=== PATIENT | female | born 1995 | race Two or more races ===

== ENCOUNTER 2021-06-02 00:14 | Emergency (ER) | payer MEDICAID ==
[~2021-06-02] VITALS: Ht 177.8 cm; Wt 63.0 kg
[2021-06-02] MEDS ORDERED: LACTATED RINGERS 1,000 ML IV SCH (01:15)
[2021-06-02 01:30] LABS: BASOPHILS % 0.6 % (0.0-2.0); EOSINOPHILS % 0.3 % (0.0-5.0); HEMOGLOBIN. 14.5 g/dL (12.0-16.0); LYMPHOCYTES % 27.6 % (20.0-50.0); MEAN CORPUSCULAR HEMOGLOBIN 29.2 pg (28.0-32.0); MEAN CORPUSCULAR VOLUME 84.3 fL (81.0-99.0); MEAN PLATELET VOLUME 8.7 fl (7.4-10.4); MONOCYTES % 9.3 % (2.0-8.0); NEUTROPHILS % 62.2 % (40.0-76.0); PLATELET 337 x1000/uL (130-400); RED BLOOD CELL COUNT 4.98 mill/uL (4.2-5.4); RED CELL DISTRIBUTION WIDTH 12.5 % (11.6-14.6)
[2021-06-02 01:39] LABS: CHLORIDE 98 mEq/L (98-107)
[2021-06-02 01:50] LABS: BETA HYDROXYBUTYRATE 3.4 mMol/L (0.0-0.3)
[2021-06-02 02:12] LABS: CLARITY URINE TURBID (CLEAR); COLOR URINE YELLOW (YELLOW); KETONES URINE 3+ (NEGATIVE); LEUKOCYTE ESTERASE URINE 2+ (NEGATIVE); NITRITE URINE NEGATIVE (NEGATIVE); OCCULT BLOOD URINE 2+ (NEGATIVE); PH URINE 5.5 (4.5-8.0); PROTEIN URINE 2+ (NEGATIVE); SPECIFIC GRAVITY URINE 1.027 (1.005-1.030)
[2021-06-02 02:15] LABS: BG BASE EXCESS -1.5 mmol/L (-2.0-2.0); BG CARBOXYHEMOGLOBIN 0.5 % (0.5-1.5); BG DEOXYHEMOGLOBIN 2.3 % (0.0-5.0); BG FRACTION INSPIRED OXYGEN 21; BG HCO3 ACT 21.5 mmol/L (22.0-26.0); BG METHEMOGLOBIN 0.3 % (0.0-1.5); BG OXYGEN SATURATION 97.7 % (92.0-98.5); BG OXYHEMOGLOBIN 96.9 % (94.0-97.0); BG PCO2 31.7 mmHg (35.0-45.0); BG PO2 104.1 mmHg (75.0-100.0); BG SAMPLE SITE LEFT RADIAL; BG TOTAL HEMOGLOBIN 14.7 g/dL (12.0-18.0); BG VENT MODE ROOM AIR
[2021-06-02] MEDS ORDERED: ONDANSETRON HCL 4MG/2ML INJ IV ONE (02:15)
[2021-06-02] MEDS ORDERED: KETOROLAC 15MG/ML VIAL IV ONE (02:15)
[2021-06-02] MEDS: LACTATED RINGERS 1,000 ML IV SCH ×3 (02:17→06:10)
[2021-06-02] MEDS ORDERED: MORPHINE SULFATE 4 MG/ML CPJ (NOT FOR IM USE) IV ONE (02:45)
[2021-06-02] MEDS ORDERED: CEFTRIAXONE SODIUM 1 G/VIAL IM ONE (03:15)
[2021-06-02 08:00] VITALS: BP 159/101
== END 2021-06-02 08:14 | disposition short-term general hospital (02) ==
LOC: ER 00:14
DX: R10.13 Epigastric pain (principal); E11.9 Type 2 diabetes mellitus without complications; Z88.8 Allergy status to other drugs, medicaments and biological substances
CPT/HCPCS: 36415; 36600; 71045; 80053; 81003; 81025; 82010; 82375; 82805; 82962; 83605; 83690; 85025; 87077; 87086; 93005; 96361; 96372; 96374; 96375; 99285; J0696; J1885; J2270; J2405

== ENCOUNTER 2022-04-04 21:52 | Emergency (ER) | payer MEDICAID ==
[~2022-04-04] VITALS: Ht 172.7 cm; Wt 69.3 kg
[2022-04-04 22:33] VITALS: BP 105/69
[2022-04-05] MEDS ORDERED: SODIUM CHLORIDE 0.9% 1000ML BAG (SEPSIS BOLUS) IV ONE (00:45)
[2022-04-05] MEDS ORDERED: METOCLOPRAMIDE HCL 10MG/2ML VIAL IV NR (01:15)
[2022-04-05 01:24] LABS: BASOPHILS % 0.7 % (0.0-2.0); EOSINOPHILS % 0.1 % (0.0-5.0); HEMATOCRIT. 35.4 % (36.0-48.0); HEMOGLOBIN. 12.5 g/dL (12.0-16.0); LYMPHOCYTES % 39.8 % (20.0-50.0); MEAN CORPUSCULAR HEMOGLOBIN 29.7 pg (28.0-32.0); MEAN CORPUSCULAR VOLUME 84.3 fL (81.0-99.0); MEAN PLATELET VOLUME 8.3 fl (7.4-10.4); MONOCYTES % 7.4 % (2.0-8.0); PLATELET 391 x1000/uL (130-400); RED CELL DISTRIBUTION WIDTH 14.1 % (11.6-14.6)
[2022-04-05 01:33] LABS: CHLORIDE 96 mEq/L (98-107)
[2022-04-05 01:35] LABS: CLARITY URINE CLOUDY (CLEAR); COLOR URINE ORANGE (YELLOW); KETONES URINE 1+ (NEGATIVE); LEUKOCYTE ESTERASE URINE NEGATIVE (NEGATIVE); NITRITE URINE NEGATIVE (NEGATIVE); OCCULT BLOOD URINE 3+ (NEGATIVE); PROTEIN URINE 3+ (NEGATIVE); SPECIFIC GRAVITY URINE 1.023 (1.005-1.030)
[2022-04-05 01:41] LABS: ETHANOL BLOOD < 10 mg/dL
[2022-04-05 01:47] LABS: *AMPHETAMINES SCREEN URINE NEGATIVE (NEGATIVE); *BARBITURATES SCREEN URINE NEGATIVE (NEGATIVE); *BENZODIAZEPINES SCREEN URINE NEGATIVE (NEGATIVE); *COCAINE SCREEN URINE NEGATIVE (NEGATIVE); CANNABINOID URINE SCREEN NEGATIVE (NEGATIVE); METHADONE URINE SCREEN NEGATIVE (NEGATIVE); PHENCYCLIDINE URINE SCREEN NEGATIVE (NEGATIVE)
[2022-04-05 01:48] LABS: PROTHROMBIN TIME 10.9 sec (9.6-11.0)
[2022-04-05 01:49] LABS: HCG SCREEN NEGATIVE; OPIATES URINE SCREEN PRESUMTIVE POSITIVE (NEGATIVE)
[2022-04-05] MEDS ORDERED: KETOROLAC 15MG/ML VIAL IV NR (02:15)
[2022-04-05] MEDS ORDERED: PANTOPRAZOLE SODIUM 40 MG/VIAL IV NR (02:30)
[2022-04-05] MEDS ORDERED: MAGNESIUM/ALUMINUM HYDROXIDE/SIMETHICONE 30ML UDC PO NR (02:30)
[2022-04-05] MEDS ORDERED: VISCOUS LIDOCAINE 2% 15 ML UDC MM NR (02:30)
[2022-04-05] MEDS ORDERED: INSULIN REGULAR (HUMULIN R) 300UNITS/3ML VIAL SUBCUT NR (02:45)
[2022-04-05] MEDS ORDERED: POTASSIUM CHLORIDE 20MEQ TABLET SR PO NR (02:45)
[2022-04-05] MEDS ORDERED: MAG355OR21 MT (03:22)
[2022-04-05] MEDS ORDERED: METO-293 MT (03:22)
[2022-04-05] MEDS ORDERED: POTA-204 MT (03:22)
== END 2022-04-05 04:21 | disposition home or self-care (01) ==
LOC: ER 21:52 → CANBEDREQ 04-05 13:31
DX: E11.43 Type 2 diabetes mellitus with diabetic autonomic (poly)neuropathy (principal); E11.65 Type 2 diabetes mellitus with hyperglycemia; K31.84 Gastroparesis; E86.0 Dehydration; Z88.8 Allergy status to other drugs, medicaments and biological substances
CPT/HCPCS: 36415; 71045; 76705; 80053; 80305; 80320; 81003; 82962; 83605; 83690; 84145; 84703; 85025; 85610; 87086; 96361; 96372; 96374; 96375; 99285; C9113; J1815; J2765; J7030; G0480

== ENCOUNTER 2022-04-17 21:08 | Emergency (ER) | payer MEDICAID ==
[~2022-04-17] VITALS: Ht 165.1 cm; Wt 64.0 kg
[~2022-04-17 21:08] MED LIST: MAG355OR21 MT; METO-293 MT; POTA-204 MT
[2022-04-17 21:17] VITALS: BP 174/115
[2022-04-17] MEDS ORDERED: MORPHINE SULFATE 4 MG/ML CPJ (NOT FOR IM USE) IV STA (21:20)
[2022-04-17] MEDS ORDERED: FAMOTIDINE 20MG/2ML VIAL IV STA (21:20)
[2022-04-17] MEDS ORDERED: ONDANSETRON HCL 4MG/2ML INJ IV STA (21:20)
[2022-04-17] MEDS ORDERED: SODIUM CHLORIDE 0.9% 1,000 ML IV ONE (21:30)
[2022-04-17] MEDS ORDERED: MIDAZOLAM HCL 2 MG/2 ML VIAL IV ONE (21:30)
[2022-04-17 23:29] LABS: BASOPHILS % 0.9 % (0.0-2.0); EOSINOPHILS % 0.2 % (0.0-5.0); HEMATOCRIT. 32.8 % (36.0-48.0); HEMOGLOBIN. 11.5 g/dL (12.0-16.0); LYMPHOCYTES % 18.9 % (20.0-50.0); MEAN CORPUSCULAR HEMOGLOBIN 29.5 pg (28.0-32.0); MEAN CORPUSCULAR VOLUME 84.3 fL (81.0-99.0); MEAN PLATELET VOLUME 7.6 fl (7.4-10.4); MONOCYTES % 5.3 % (2.0-8.0); NEUTROPHILS % 74.7 % (40.0-76.0); PLATELET 397 x1000/uL (130-400); RED BLOOD CELL COUNT 3.89 mill/uL (4.2-5.4)
[2022-04-17 23:33] LABS: CHLORIDE 91 mEq/L (98-107)
[2022-04-17 23:36] LABS: PROTHROMBIN TIME 10.7 sec (9.6-11.0)
[2022-04-17 23:42] LABS: ETHANOL BLOOD < 10 mg/dL
[2022-04-17] MEDS ORDERED: MIDAZOLAM HCL 2 MG/2 ML VIAL IV NR (23:45)
[2022-04-17] MEDS ORDERED: MORPHINE SULFATE 4 MG/ML CPJ (NOT FOR IM USE) IV NR (23:45)
[2022-04-17] MEDS ORDERED: ONDANSETRON HCL 4MG/2ML INJ IV NR (23:45)
[2022-04-17] MEDS ORDERED: FAMOTIDINE 20MG/2ML VIAL IV NR (23:45)
[2022-04-17 23:55] LABS: HCG SCREEN NEGATIVE
[2022-04-18 00:38] LABS: CLARITY URINE CLOUDY (CLEAR); COLOR URINE YELLOW (YELLOW); KETONES URINE TRACE (NEGATIVE); LEUKOCYTE ESTERASE URINE NEGATIVE (NEGATIVE); NITRITE URINE NEGATIVE (NEGATIVE); OCCULT BLOOD URINE 1+ (NEGATIVE); PROTEIN URINE 4+ (NEGATIVE); SPECIFIC GRAVITY URINE 1.017 (1.005-1.030)
[2022-04-18 00:55] LABS: *AMPHETAMINES SCREEN URINE NEGATIVE (NEGATIVE); *BARBITURATES SCREEN URINE NEGATIVE (NEGATIVE); *BENZODIAZEPINES SCREEN URINE NEGATIVE (NEGATIVE); *COCAINE SCREEN URINE NEGATIVE (NEGATIVE); CANNABINOID URINE SCREEN NEGATIVE (NEGATIVE); METHADONE URINE SCREEN NEGATIVE (NEGATIVE); PHENCYCLIDINE URINE SCREEN NEGATIVE (NEGATIVE)
[2022-04-18 00:56] LABS: OPIATES URINE SCREEN PRESUMTIVE POSITIVE (NEGATIVE)
[2022-04-18] MEDS ORDERED: ONDA4TAB11 PO (00:56)
[2022-04-18] MEDS ORDERED: OMEP20CA14 MT (00:56)
[2022-04-18] MEDS ORDERED: DICY10CA88 MT (00:56)
== END 2022-04-18 02:37 | disposition home or self-care (01) ==
LOC: ER 21:08
DX: R10.13 Epigastric pain (principal); E11.9 Type 2 diabetes mellitus without complications; I10 Essential (primary) hypertension; Z88.6 Allergy status to analgesic agent; Z88.5 Allergy status to narcotic agent
CPT/HCPCS: 36415; 80053; 80305; 80320; 81003; 83690; 84703; 85025; 85610; 96361; 96374; 96375; 99284; J2250; J2270; J2405; J3490; J7030; G0480

== ENCOUNTER 2022-04-21 19:09 | Emergency (ER) | payer MEDICAID ==
[~2022-04-21] VITALS: Ht 172.7 cm; Wt 77.0 kg
[~2022-04-21 19:09] MED LIST changes: +DICY10CA88 MT; +OMEP20CA14 MT; +ONDA4TAB11 PO
[2022-04-21] MEDS ORDERED: DEXTROSE 5% WATER 1,000 ML IV ONE (20:30)
[2022-04-21] MEDS ORDERED: MORPHINE SULFATE 2 MG/ML CPJ (NOT FOR IM USE) IV ONE (20:30)
[2022-04-21 20:59] LABS: BASOPHILS % 0.3 % (0.0-2.0); EOSINOPHILS % 0.1 % (0.0-5.0); HEMATOCRIT. 32.8 % (36.0-48.0); HEMOGLOBIN. 11.5 g/dL (12.0-16.0); LYMPHOCYTES % 16.2 % (20.0-50.0); MEAN CORPUSCULAR HEMOGLOBIN 29.7 pg (28.0-32.0); MEAN CORPUSCULAR VOLUME 84.6 fL (81.0-99.0); MEAN PLATELET VOLUME 7.4 fl (7.4-10.4); MONOCYTES % 3.7 % (2.0-8.0); NEUTROPHILS % 79.7 % (40.0-76.0); PLATELET 378 x1000/uL (130-400); RED BLOOD CELL COUNT 3.88 mill/uL (4.2-5.4); RED CELL DISTRIBUTION WIDTH 14.2 % (11.6-14.6)
[2022-04-21 21:10] LABS: CHLORIDE 94 mEq/L (98-107)
[2022-04-21 21:23] LABS: ETHANOL BLOOD < 10 mg/dL
[2022-04-21] MEDS ORDERED: MORPHINE SULFATE 2 MG/ML CPJ (NOT FOR IM USE) IV SCH (22:15)
[2022-04-22 02:55] VITALS: BP 134/88
== END 2022-04-22 04:03 | disposition short-term general hospital (02) ==
LOC: ER 19:09
DX: E11.649 Type 2 diabetes mellitus with hypoglycemia without coma (principal); R56.9 Unspecified convulsions; R41.82 Altered mental status, unspecified; S00.512A Abrasion of oral cavity, initial encounter; I10 Essential (primary) hypertension; Z20.822 Contact with and (suspected) exposure to COVID-19; Z88.6 Allergy status to analgesic agent; Z88.5 Allergy status to narcotic agent; X58.XXXA Exposure to other specified factors, initial encounter; Y93.89 Activity, other specified; Y92.018 Other place in single-family (private) house as the place of occurrence of the external cause
CPT/HCPCS: 36415; 70450; 71045; 80053; 80320; 82962; 84484; 85025; 87426; 93005; 96361; 96374; 99285; C9803; J2270; J7070; G0480

== ENCOUNTER 2022-10-08 18:32 | Emergency (ER) | payer MEDICAID ==
[~2022-10-08] VITALS: Ht 170.2 cm; Wt 73.0 kg
[2022-10-08 18:34] VITALS: BP 195/100
== END 2022-10-08 21:21 | disposition left against medical advice (07) ==
LOC: ER 18:45
DX: R06.02 Shortness of breath (principal); Z53.21 Procedure and treatment not carried out due to patient leaving prior to being seen by health care provider
CPT/HCPCS: 99281

== ENCOUNTER 2023-06-09 17:05 | Emergency (ER) | payer MEDICAID ==
[~2023-06-09] VITALS: Ht 175.3 cm; Wt 82.0 kg
[~2023-06-09 17:05] MED LIST changes: +DICY-18 MT; -DICY10CA88 MT
[2023-06-09] MEDS ORDERED: ONDANSETRON HCL 4MG/2ML INJ IV STA (17:13)
[2023-06-09 17:15] VITALS: O2SAT 100
[2023-06-09] MEDS ORDERED: FAMOTIDINE 20MG/2ML VIAL IV ONE (17:15)
[2023-06-09] MEDS ORDERED: SODIUM CHLORIDE 0.9% 1,000 ML IV ONE (17:15)
[2023-06-09 17:52] LABS: BASOPHILS % 0.5 % (0.0-2.0); EOSINOPHILS % 0.2 % (0.0-5.0); HEMATOCRIT. 28.7 % (36.0-48.0); MEAN CORPUSCULAR HEMOGLOBIN 29.7 pg (28.0-32.0); MEAN CORPUSCULAR HGB CONC 34.9 g/dL (31.0-37.0); MEAN CORPUSCULAR VOLUME 85.1 fL (81.0-99.0); MEAN PLATELET VOLUME 8.6 fl (7.4-10.4); MONOCYTES % 2.8 % (2.0-8.0); NEUTROPHILS % 82.5 % (40.0-76.0); PLATELET 355 x1000/uL (130-400); RED BLOOD CELL COUNT 3.37 mill/uL (4.2-5.4); RED CELL DISTRIBUTION WIDTH 11.9 % (11.6-14.6); WHITE BLOOD COUNT 9.3 x1000/uL (4.5-11.0)
[2023-06-09 18:12] LABS: HCG SCREEN NEGATIVE
[2023-06-09 18:15] LABS: ALANINE AMINOTRANSFERASE 10 IU/L (10-49); ALBUMIN 3.2 g/dL (3.2-4.8); ASPARTATE AMINOTRANSFERASE 30 IU/L (<34); BILIRUBIN TOTAL 1.1 mg/dL (0.1-1.0); CALCIUM 8.7 mg/dL (8.7-10.4); CARBON DIOXIDE 26 mEq/L (21-32); CHLORIDE 100 mEq/L (98-107); CREATININE 1.1 mg/dL (0.6-1.0); POTASSIUM 3.7 mEq/L (3.5-5.1); PROTEIN TOTAL 6.6 g/dL (6.0-8.3); SODIUM 138 mEq/L (136-145); UREA NITROGEN BLOOD 12 mg/dL (9-23)
[2023-06-09 18:31] LABS: GLUCOSE 430 mg/dL (70-105)
[2023-06-09] MEDS ORDERED: KETOROLAC 15MG/ML VIAL IV ONE (19:00)
[2023-06-09] MEDS ORDERED: INSULIN REGULAR (HUMULIN R) 300UNITS/3ML VIAL IV ONE (19:00)
[2023-06-09 19:06] LABS: BETA HYDROXYBUTYRATE 3.9 mMol/L (0.0-0.3)
[2023-06-09] MEDS ORDERED: LACTATED RINGERS 1,000 ML IV SCH (19:30)
[2023-06-09] MEDS ORDERED: MORPHINE SULFATE 4 MG/ML CPJ (NOT FOR IM USE) IV ONE (19:30)
[2023-06-09] MEDS ORDERED: LABETALOL 5MG/ML SYR 20 MG/4 ML SYRINGE IV ONE (20:30)
[2023-06-09 21:03] VITALS: BP 184/105; PULSE 75; RESP 16; TEMP 98.3
== END 2023-06-09 21:09 | disposition short-term general hospital (02) ==
LOC: ER 17:05 → EDBEDREQ 18:39 → ER 21:09 → CANBEDREQ 06-10 14:15
DX: R10.13 Epigastric pain (principal); N17.9 Acute kidney failure, unspecified; E11.65 Type 2 diabetes mellitus with hyperglycemia; I10 Essential (primary) hypertension; F41.9 Anxiety disorder, unspecified
CPT/HCPCS: 80053; 82010; 82962; 84703; 83690; 85025; 36415; 96361; 96374; 96375; 99285; J3490 ×2; J1815; J1885; J2405; J2270; J7030; Z7610 ×2

== ENCOUNTER 2023-11-02 13:41 | Emergency (ER) | payer MEDICAID ==
[~2023-11-02] VITALS: Ht 175.3 cm; Wt 72.0 kg
[2023-11-02 13:42] VITALS: BP 185/137; PULSE 118; RESP 18; TEMP 96.8; O2SAT 97
[2023-11-02 14:19] LABS: BASOPHILS % 0.5 % (0.0-2.0); EOSINOPHILS % 0.1 % (0.0-5.0); HEMATOCRIT. 31.4 % (36.0-48.0); LYMPHOCYTES % 10.2 % (20.0-50.0); MEAN CORPUSCULAR HEMOGLOBIN 29.5 pg (28.0-32.0); MEAN CORPUSCULAR HGB CONC 35.1 g/dL (31.0-37.0); MEAN CORPUSCULAR VOLUME 83.9 fL (81.0-99.0); MEAN PLATELET VOLUME 8.3 fl (7.4-10.4); MONOCYTES % 2.7 % (2.0-8.0); NEUTROPHILS % 86.5 % (40.0-76.0); PLATELET 308 x1000/uL (130-400); RED BLOOD CELL COUNT 3.75 mill/uL (4.2-5.4); WHITE BLOOD COUNT 8.5 x1000/uL (4.5-11.0)
[2023-11-02 14:24] LABS: CHLORIDE 101 mEq/L (98-107); POTASSIUM 3.2 mEq/L (3.5-5.1); SODIUM 139 mEq/L (136-145)
[2023-11-02 14:25] LABS: CALCIUM 8.3 mg/dL (8.7-10.4); CARBON DIOXIDE 25 mEq/L (21-32)
[2023-11-02 14:30] LABS: UREA NITROGEN BLOOD 22 mg/dL (9-23)
[2023-11-02 14:32] LABS: ALANINE AMINOTRANSFERASE 10 IU/L (10-49); ALBUMIN 3.3 g/dL (3.2-4.8); ASPARTATE AMINOTRANSFERASE 20 IU/L (<34); BILIRUBIN TOTAL 0.9 mg/dL (0.1-1.0); PROTEIN TOTAL 6.9 g/dL (6.0-8.3)
[2023-11-02 14:43] LABS: HCG SCREEN NEGATIVE
[2023-11-02 14:50] LABS: CREATININE 2.2 mg/dL (0.6-1.0); ETHANOL BLOOD < 10 mg/dL (<10)
[2023-11-02 14:51] LABS: GLUCOSE 459 mg/dL (70-105)
[2023-11-02 14:59] LABS: BETA HYDROXYBUTYRATE 4.4 mMol/L (0.0-0.3)
[2023-11-02] MEDS: KETOROLAC 30MG/ML VIAL IV STA (15:04)
[2023-11-02] MEDS: ONDANSETRON HCL 4MG/2ML INJ IV STA (15:04)
[2023-11-02] MEDS: HALOPERIDOL LACTATE 5MG/ML VIAL IM ONE (15:04)
[2023-11-02] MEDS: MAGNESIUM/ALUMINUM HYDROXIDE/SIMETHICONE 30ML UDC PO STA (15:05)
[2023-11-02] MEDS: SODIUM CHLORIDE 0.9% 1,000 ML IV ONE (15:05)
[2023-11-02] MEDS: DICYCLOMINE HCL 10MG CAPSULE PO SCH (15:05)
[2023-11-02] MEDS: DICYCLOMINE 10 MG/5 ML ORAL SYR PO STA (15:08)
[2023-11-02] MEDS ORDERED: DEXTROSE 50% WATER 50ML SYRINGE IV PRN (15:30)
[2023-11-02] MEDS ORDERED: METOCLOPRAMIDE HCL 10MG/2ML VIAL IV ONE (15:30)
[2023-11-02 15:40] LABS: CLARITY URINE CLEAR (CLEAR); COLOR URINE YELLOW (YELLOW); GLUCOSE URINE 3+ (NEGATIVE); KETONES URINE 1+ (NEGATIVE); LEUKOCYTE ESTERASE URINE NEGATIVE (NEGATIVE); NITRITE URINE NEGATIVE (NEGATIVE); OCCULT BLOOD URINE 2+ (NEGATIVE); PROTEIN URINE 4+ (NEGATIVE); SPECIFIC GRAVITY URINE 1.021 (1.005-1.030); UROBILINOGEN URINE 0.2 E.U./dL (0.2-1.0)
[2023-11-02 15:58] LABS: BACTERIA URINE NONE SEEN; RBC URINE 0-2 /hpf (0-2); SQUAMOUS EPITHELIAL CELL URINE 1+ /lpf (RARE/1+); WBC URINE 0-2 /hpf (0-2)
[2023-11-02 15:59] LABS: *AMPHETAMINES SCREEN URINE NEGATIVE (NEGATIVE); *BARBITURATES SCREEN URINE NEGATIVE (NEGATIVE); *BENZODIAZEPINES SCREEN URINE NEGATIVE (NEGATIVE); *COCAINE SCREEN URINE NEGATIVE (NEGATIVE); CANNABINOID URINE SCREEN NEGATIVE (NEGATIVE); METHADONE URINE SCREEN NEGATIVE (NEGATIVE); OPIATES URINE SCREEN PRESUMPTIVE POSITIVE (NEGATIVE); PHENCYCLIDINE URINE SCREEN NEGATIVE (NEGATIVE)
[2023-11-02 16:00] LABS: ECSTASY MDMA SCREEN URINE NEGATIVE (NEGATIVE)
[2023-11-02] MEDS ORDERED: INSULIN LISPRO 100 UNITS/ML SUBCUT SCH (18:20)
== END 2023-11-02 15:20 | disposition left against medical advice (07) ==
LOC: ER 13:41 → CANBEDREQ 16:38
DX: E11.43 Type 2 diabetes mellitus with diabetic autonomic (poly)neuropathy (principal); K31.84 Gastroparesis; E87.6 Hypokalemia; E11.10 Type 2 diabetes mellitus with ketoacidosis without coma; F41.9 Anxiety disorder, unspecified; I10 Essential (primary) hypertension
CPT/HCPCS: 80053; 80305; 81003; 81025; 82010; 80320; 84703; 83690; 85025; 36415; 96361; 96372; 96374; 96375; 99291; J1630; J1885; J2405; J7030; Z7610 ×2; G0480

== ENCOUNTER 2024-06-29 10:43 | Emergency (ER) | payer MEDICAID ==
[~2024-06-29] VITALS: Ht 170.2 cm; Wt 73.0 kg
[~2024-06-29 10:43] MED LIST changes: +ONDA-239 PO; -ONDA4TAB11 PO
[2024-06-29 10:47] VITALS: TEMP 98.7; O2SAT 100
[2024-06-29] MEDS: MAGNESIUM/ALUMINUM HYDROXIDE/SIMETHICONE 30ML UDC PO STA (12:20)
[2024-06-29] MEDS: ONDANSETRON 4MG ODT PO STA (12:20)
[2024-06-29 12:39] LABS: CALCIUM 9.1 mg/dL (8.7-10.4)
[2024-06-29 12:43] LABS: CREATININE 1.8 mg/dL (0.6-1.0)
[2024-06-29 12:44] LABS: BASOPHILS % 0.6 % (0.0-2.0); EOSINOPHILS % 0.8 % (0.0-5.0); HEMATOCRIT. 35.3 % (36.0-48.0); HEMOGLOBIN. 11.9 g/dL (12.0-16.0); LYMPHOCYTES % 15.6 % (20.0-50.0); MEAN CORPUSCULAR HEMOGLOBIN 30.5 pg (28.0-32.0); MEAN CORPUSCULAR HGB CONC 33.7 g/dL (31.0-37.0); MEAN CORPUSCULAR VOLUME 90.4 fL (81.0-99.0); MEAN PLATELET VOLUME 7.1 fl (7.4-10.4); MONOCYTES % 5.4 % (2.0-8.0); NEUTROPHILS % 77.6 % (40.0-76.0); PLATELET 408 x1000/uL (130-400); RED BLOOD CELL COUNT 3.91 mill/uL (4.2-5.4); RED CELL DISTRIBUTION WIDTH 16.5 % (11.6-14.6); WHITE BLOOD COUNT 6.8 x1000/uL (4.5-11.0)
[2024-06-29 12:45] LABS: HCG SCREEN NEGATIVE
[2024-06-29 12:54] VITALS: BP 147/93; PULSE 115; RESP 18
[2024-06-29] MEDS: HYDROCODONE/ACETAMINOPHEN 5/325MG TABLET PO ONE (12:54)
[2024-06-29] MEDS ORDERED: METO-293 MT (12:55)
== END 2024-06-29 13:34 | disposition home or self-care (01) ==
LOC: ER 10:43
DX: K31.84 Gastroparesis (principal); F41.9 Anxiety disorder, unspecified; I10 Essential (primary) hypertension; E11.9 Type 2 diabetes mellitus without complications; Z88.5 Allergy status to narcotic agent; Z79.899 Other long term (current) drug therapy
CPT/HCPCS: 99284; 80048; 84703; 83690; 85025; 36415; Q0162

== ENCOUNTER 2024-06-29 13:19 | Emergency (ER) | payer MEDICAID ==
[~2024-06-29] VITALS: Ht 167.6 cm; Wt 85.0 kg
[2024-06-29 13:32] VITALS: O2SAT 98
[2024-06-29 13:43] VITALS: BP 140/86; PULSE 111; RESP 18; TEMP 37.05852; O2SAT 98
== END 2024-06-29 15:41 | disposition left against medical advice (07) ==
LOC: ER 13:36
DX: R10.9 Unspecified abdominal pain (principal); Z53.21 Procedure and treatment not carried out due to patient leaving prior to being seen by health care provider

== ENCOUNTER 2024-10-22 22:51 | Inpatient (IN) | payer MEDICAID ==
[~2024-10-22] VITALS: Ht 200.7 cm; Wt 58.1 kg
[2024-10-22 22:59] VITALS: RESP 34
[2024-10-22 23:26] LABS: BG BASE EXCESS -9.7 mmol/L (-2.0-3.0); BG CARBOXYHEMOGLOBIN 0.7 % (0.5-1.5); BG DEOXYHEMOGLOBIN 1.1 % (0.0-5.0); BG FRACTION INSPIRED OXYGEN 80; BG HCO3 ACT 15.2 mmol/L (21.0-28.0); BG OXYGEN SATURATION 98.9 % (94.0-98.0); BG OXYHEMOGLOBIN 98.2 % (94.0-98.0); BG PCO2 29.5 mmHg (32.0-45.0); BG PO2 152.5 mmHg (83.0-108.0); BG TOTAL HEMOGLOBIN 7.4 g/dL (12.0-16.0); BG VENT MODE MASK - BIPAP
[2024-10-22 23:48] LABS: MEAN CORPUSCULAR HEMOGLOBIN 29.6 pg (28.0-32.0); MEAN CORPUSCULAR HGB CONC 32.6 g/dL (31.0-37.0); MEAN CORPUSCULAR VOLUME 90.6 fL (81.0-99.0); MEAN PLATELET VOLUME 8.8 fl (7.4-10.4); PLATELET 180 x1000/uL (130-400); RED BLOOD CELL COUNT 2.27 mill/uL (4.2-5.4); WHITE BLOOD COUNT 11.7 x1000/uL (4.5-11.0)
[2024-10-22 23:53] LABS: CHLORIDE 108 mEq/L (98-107); POTASSIUM 5.1 mEq/L (3.5-5.1); SODIUM 137 mEq/L (136-145)
[2024-10-22 23:54] LABS: CALCIUM 8.1 mg/dL (8.7-10.4); CARBON DIOXIDE 17 mEq/L (21-32)
[2024-10-23] VITALS (20 sets, daily range): BP systolic 106–163; BP diastolic 59–100; PULSE 79–97; RESP 19–31; TEMP 36.78072–38.11416; O2SAT 89–100
[2024-10-23 00:11] LABS: GLUCOSE 163 mg/dL (70-105); UREA NITROGEN BLOOD 75 mg/dL (9-23)
[2024-10-23 00:13] LABS: TROPONIN I HIGH SENSITIVITY 26 ng/L (3.0-34)
[2024-10-23 00:24] LABS: DIFFERENTIAL COMMENT 1; HEMATOCRIT. 20.5 % (36.0-48.0); HEMOGLOBIN. 6.7 g/dL (12.0-16.0)
[2024-10-23 00:33] LABS: CREATININE 3.5 mg/dL (0.6-1.0)
[2024-10-23] MEDS: ONDANSETRON HCL 4MG/2ML INJ IV STA (01:00)
[2024-10-23] MEDS: FUROSEMIDE 40MG/4ML VIAL IV NR (01:01)
[2024-10-23] MEDS: FUROSEMIDE 40MG/4ML VIAL IV ONE (01:01)
[2024-10-23] MEDS: ONDANSETRON HCL 4MG/2ML INJ IV NR (01:09)
[2024-10-23] MEDS: KETAMINE HCL 50 MG/ML 10ML IM NR (01:45)
[2024-10-23] MEDS: MORPHINE SULFATE 4 MG/ML INJ (FOR IV/IM USE) IV ONE (01:45)
[2024-10-23 02:20] LABS: TROPONIN I HIGH SENSITIVITY 25 ng/L (3.0-34)
[2024-10-23] MEDS ORDERED: IPRATROPIUM/ALBUTEROL 0.5-3(2.5)MG/3ML NEB NEB SCH (02:30)
[2024-10-23] MEDS ORDERED: DEXTROSE 50% WATER 50ML SYRINGE IV PRN (02:45)
[2024-10-23 02:59] LABS: IRON 12 ug/dL (50-170)
[2024-10-23 03:01] LABS: PHOSPHORUS 6.1 mg/dL (2.5-4.9); TOTAL IRON BINDING CAPACITY 215 ug/dl (250-425)
[2024-10-23 03:04] LABS: FERRITIN 1556 ng/mL (10-291); FOLIC ACID (FOLATE) SERUM 7.49 ng/mL (>5.38)
[2024-10-23 03:05] LABS: VITAMIN B12 SERUM 480 pg/mL (211-911)
[2024-10-23] MEDS ORDERED: MAGNESIUM/ALUMINUM HYDROXIDE/SIMETHICONE 30ML UDC PO PRN (03:15)
[2024-10-23] MEDS ORDERED: ONDANSETRON HCL 4MG/2ML INJ IV PRN (03:15)
[2024-10-23] MEDS ORDERED: GUAIFENESIN 200MG/10ML SUGAR FREE UDC PO PRN (03:15)
[2024-10-23] MEDS ORDERED: IPRATROPIUM/ALBUTEROL 0.5-3(2.5)MG/3ML NEB HHN PRN (03:15)
[2024-10-23] MEDS ORDERED: DOCUSATE SODIUM 100MG CAPSULE PO PRN (03:15)
[2024-10-23] MEDS ORDERED: HYDRALAZINE 20MG/ML VIAL IV PRN (03:30)
[2024-10-23 05:10] LABS: BG BASE EXCESS -10.5 mmol/L (-2.0-3.0); BG CARBOXYHEMOGLOBIN 0.8 % (0.5-1.5); BG DEOXYHEMOGLOBIN 2.3 % (0.0-5.0); BG FRACTION INSPIRED OXYGEN 80; BG HCO3 ACT 14.7 mmol/L (21.0-28.0); BG METHEMOGLOBIN 0.4 % (0.5-1.5); BG OXYGEN SATURATION 97.7 % (94.0-98.0); BG OXYHEMOGLOBIN 96.5 % (94.0-98.0); BG PCO2 29.6 mmHg (32.0-45.0); BG PH 7.314 (7.350-7.450); BG TOTAL HEMOGLOBIN 7.1 g/dL (12.0-16.0); BG VENT MODE MASK - BIPAP
[2024-10-23] MEDS ORDERED: GABA-529 PO (05:23)
[2024-10-23] MEDS ORDERED: CARV12.545 PO (05:23)
[2024-10-23] MEDS ORDERED: FURO20TA4 PO (05:23)
[2024-10-23] MEDS ORDERED: APIX5TAB PO (05:23)
[2024-10-23] MEDS ORDERED: SODI650T PO (05:23)
[2024-10-23] MEDS ORDERED: ATOR20TA65 PO (05:23)
[2024-10-23] MEDS ORDERED: AMLO10TA80 PO (05:23)
[2024-10-23] MEDS ORDERED: SEVELAMER (05:23)
[2024-10-23] MEDS ORDERED: METO2.5T2 PO (05:23)
[2024-10-23 05:54] LABS: PLATELET ESTIMATE NORMAL
[2024-10-23] MEDS: SODIUM CHLORIDE 0.9% 3ML FLUSH IVF SCH (06:00)
[2024-10-23] MEDS ORDERED: PIPERACILLIN/TAZO 3.375G/50ML 50 ML IV SCH (06:00)
[2024-10-23] MEDS ORDERED: HYDRALAZINE 20MG/ML VIAL IV SCH (06:00)
[2024-10-23] MEDS: BLOOD SUGAR DIAGNOSTIC STRIP TEST SCH (07:30)
[2024-10-23] MEDS: PIPERACILLIN/TAZO 3.375G/50ML 50 ML IV SCH (07:57)
[2024-10-23] MEDS: FUROSEMIDE 40MG/4ML VIAL IV SCH ×2 (07:57→17:15)
[2024-10-23] MEDS: MAGNESIUM 2 G PREMIX 50 ML IV NR (07:57)
[2024-10-23] MEDS: INSULIN LISPRO 100 UNITS/ML SUBCUT SCH (08:00)
[2024-10-23] MEDS: LORAZEPAM 0.5MG TABLET PO PRN (08:37)
[2024-10-23] MEDS: TRAMADOL 50MG TABLET PO PRN (08:39)
[2024-10-23] MEDS: LIDOCAINE 5% PATCH TOP SCH (09:00)
[2024-10-23] MEDS ORDERED: ENOXAPARIN 30MG/0.3ML SYR SUBCUT SCH (09:00)
[2024-10-23 09:14] LABS: INR 1.4; PARTIAL THROMBOPLASTIN TIME 36.8 sec (23.4-31.0); PROTHROMBIN TIME 14.6 sec (9.6-11.0)
[2024-10-23] MEDS: PANTOPRAZOLE SODIUM 40 MG/VIAL IV SCH (10:28)
[2024-10-23] MEDS: VANCOMYCIN 1.5GM/250ML IV NR (10:28)
[2024-10-23] MEDS: FERROUS SULFATE 325MG TABLET PO SCH (10:28)
[2024-10-23] MEDS: MULTIVITAMINS,THER W-MINERALS TABLET PO SCH (10:29)
[2024-10-23] MEDS ORDERED: NALOXONE HCL 0.4MG/ML VIAL IV PRN (12:30)
[2024-10-23] MEDS ORDERED: SEVELAMER CARBONATE 800 MG TABLET PO SCH (13:00)
[2024-10-23] MEDS: LIDOCAINE HCL 1% 10 MG/ML 10ML VIAL ONE (14:52)
[2024-10-23 17:11] LABS: TROPONIN I HIGH SENSITIVITY 23 ng/L (3.0-34)
[2024-10-23 17:12] LABS: CREATINE KINASE 338 IU/L (34-145)
[2024-10-23 20:11] LABS: HEPATITIS B SURFACE ANTIGEN NEGATIVE (Negative)
[2024-10-23] MEDS: FUROSEMIDE 100MG/10ML VIAL IVP NR (20:21)
[2024-10-23 20:32] LABS: HEPATITIS A AB IGM NEGATIVE (Negative)
[2024-10-23 20:33] LABS: HEPATITIS B CORE AB IGM NEGATIVE (Negative); HEPATITIS C AB NON REACTIVE (Neg) (Negative)
[2024-10-23 21:13] LABS: BG BASE EXCESS -8.2 mmol/L (-2.0-3.0); BG DEOXYHEMOGLOBIN 1.8 % (0.0-5.0); BG FRACTION INSPIRED OXYGEN 80; BG HCO3 ACT 17.4 mmol/L (21.0-28.0); BG METHEMOGLOBIN 0.2 % (0.5-1.5); BG OXYGEN SATURATION 98.2 % (94.0-98.0); BG PCO2 36.1 mmHg (32.0-45.0); BG PH 7.301 (7.350-7.450); BG PO2 111.3 mmHg (83.0-108.0); BG SAMPLE SITE RIGHT RADIAL; BG TOTAL HEMOGLOBIN 8.4 g/dL (12.0-16.0); BG TOTAL RESPIRATORY RATE 20 b/min; BG VENT MODE MASK - BIPAP
[2024-10-23] MEDS: CALCIUM ACETATE 667MG CAPSULE PO SCH (21:22)
[2024-10-23 21:45] LABS: HEMATOCRIT. 23.6 % (36.0-48.0); HEMOGLOBIN. 7.7 g/dL (12.0-16.0); MEAN CORPUSCULAR HEMOGLOBIN 29.6 pg (28.0-32.0); MEAN CORPUSCULAR HGB CONC 32.6 g/dL (31.0-37.0); MEAN CORPUSCULAR VOLUME 90.9 fL (81.0-99.0); MEAN PLATELET VOLUME 8.9 fl (7.4-10.4); PLATELET 166 x1000/uL (130-400); RED BLOOD CELL COUNT 2.59 mill/uL (4.2-5.4); RED CELL DISTRIBUTION WIDTH 14.8 % (11.6-14.6); WHITE BLOOD COUNT 15.5 x1000/uL (4.5-11.0)
[2024-10-23 21:46] LABS: DIFFERENTIAL COMMENT 1
[2024-10-23 22:05] LABS: PLATELET ESTIMATE NORMAL
[2024-10-24] VITALS (24 sets, daily range): BP systolic 121–154; BP diastolic 54–121; PULSE 83–95; RESP 14–24; TEMP 36.9474–38.7; O2SAT 80–100
[2024-10-24 07:59] LABS: CLARITY URINE TURBID (CLEAR); COLOR URINE YELLOW (YELLOW); GLUCOSE URINE 1+ (NEGATIVE); KETONES URINE NEGATIVE (NEGATIVE); LEUKOCYTE ESTERASE URINE 1+ (NEGATIVE); NITRITE URINE NEGATIVE (NEGATIVE); OCCULT BLOOD URINE 2+ (NEGATIVE); PH URINE 5.5 (4.5-8.0); PROTEIN URINE 4+ (NEGATIVE); SPECIFIC GRAVITY URINE 1.017 (1.005-1.030); UROBILINOGEN URINE 0.2 E.U./dL (0.2-1.0)
[2024-10-24 08:35] LABS: *AMPHETAMINES SCREEN URINE NEGATIVE (NEGATIVE); *BARBITURATES SCREEN URINE NEGATIVE (NEGATIVE); *BENZODIAZEPINES SCREEN URINE NEGATIVE (NEGATIVE); *COCAINE SCREEN URINE NEGATIVE (NEGATIVE); CANNABINOID URINE SCREEN NEGATIVE (NEGATIVE); METHADONE URINE SCREEN NEGATIVE (NEGATIVE); OPIATES URINE SCREEN PRESUMPTIVE POSITIVE (NEGATIVE); PHENCYCLIDINE URINE SCREEN NEGATIVE (NEGATIVE)
[2024-10-24 08:36] LABS: ECSTASY MDMA SCREEN URINE NEGATIVE (NEGATIVE)
[2024-10-24 09:25] LABS: COARSE GRANULAR CASTS URINE 20-30 /lpf
[2024-10-24 09:26] LABS: HYALINE CASTS URINE 0-5 /lpf
[2024-10-24 09:27] LABS: FINE GRANULAR CASTS URINE 0-5 /lpf
[2024-10-24 09:28] LABS: SQUAMOUS EPITHELIAL CELL URINE 1+ /lpf (RARE/1+)
[2024-10-24 09:29] LABS: WBC URINE 25-50 /hpf (0-2)
[2024-10-24 09:30] LABS: RBC URINE 15-25 /hpf (0-2)
[2024-10-24 09:31] LABS: BACTERIA URINE 4+
[2024-10-24 10:09] LABS: BG BASE EXCESS -9.9 mmol/L (-2.0-3.0); BG CARBOXYHEMOGLOBIN 1.2 % (0.5-1.5); BG DEOXYHEMOGLOBIN 6.6 % (0.0-5.0); BG FRACTION INSPIRED OXYGEN 60; BG HCO3 ACT 16.5 mmol/L (21.0-28.0); BG METHEMOGLOBIN 0.3 % (0.5-1.5); BG OXYGEN SATURATION 93.3 % (94.0-98.0); BG OXYHEMOGLOBIN 91.9 % (94.0-98.0); BG PCO2 38.3 mmHg (32.0-45.0); BG PH 7.251 (7.350-7.450); BG PO2 73.4 mmHg (83.0-108.0); BG SAMPLE SITE LEFT RADIAL; BG TOTAL HEMOGLOBIN 7.7 g/dL (12.0-16.0); BG VENT MODE MASK - BIPAP
[2024-10-24 10:24] LABS: HEMATOCRIT. 21.6 % (36.0-48.0); HEMOGLOBIN. 7.1 g/dL (12.0-16.0); MEAN CORPUSCULAR HEMOGLOBIN 29.7 pg (28.0-32.0); MEAN CORPUSCULAR HGB CONC 32.6 g/dL (31.0-37.0); MEAN CORPUSCULAR VOLUME 91.1 fL (81.0-99.0); MEAN PLATELET VOLUME 9.5 fl (7.4-10.4); PLATELET 167 x1000/uL (130-400); RED BLOOD CELL COUNT 2.37 mill/uL (4.2-5.4); RED CELL DISTRIBUTION WIDTH 15.1 % (11.6-14.6); WHITE BLOOD COUNT 10.6 x1000/uL (4.5-11.0)
[2024-10-24 10:30] LABS: DIFFERENTIAL COMMENT 1
[2024-10-24 10:36] LABS: CARBON DIOXIDE 18 mEq/L (21-32); CHLORIDE 104 mEq/L (98-107); POTASSIUM 5.3 mEq/L (3.5-5.1); SODIUM 136 mEq/L (136-145)
[2024-10-24 10:37] LABS: CALCIUM 8.1 mg/dL (8.7-10.4)
[2024-10-24 10:47] LABS: THYROID STIMULATING HORMONE 4.16 uIU/mL (0.55-4.78)
[2024-10-24 11:17] LABS: GLUCOSE 93 mg/dL (70-105)
[2024-10-24 11:18] LABS: ALANINE AMINOTRANSFERASE 9 IU/L (10-49); LDL CHOLESTEROL 13 mg/dL (5-100); TRIGLYCERIDE 77 mg/dL (0-150); UREA NITROGEN BLOOD 62 mg/dL (9-23)
[2024-10-24 11:19] LABS: ALBUMIN 3.4 g/dL (3.2-4.8); ASPARTATE AMINOTRANSFERASE 33 IU/L (<34); BILIRUBIN DIRECT 0.8 mg/dL (<=3.0); CHOLESTEROL 83 mg/dL (<200); HDL CHOLESTEROL 41 mg/dL (>65); PHOSPHORUS 7.6 mg/dL (2.5-4.9)
[2024-10-24 11:20] LABS: BILIRUBIN TOTAL 1.4 mg/dL (0.1-1.0); PROTEIN TOTAL 6.4 g/dL (6.0-8.3)
[2024-10-24 13:22] LABS: PLATELET ESTIMATE NORMAL
[2024-10-24] MEDS ORDERED: HYDROXYZINE 10MG TABLET PO PRN (16:15)
[2024-10-24] MEDS: ONDANSETRON HCL 4MG/2ML INJ IV NR (17:44)
[2024-10-24] MEDS: PIPERACILLIN/TAZO 3.375G/50ML IV SCH (20:16)
[2024-10-24 20:58] LABS: HEMATOCRIT 21.8 % (36.0-48.0); HEMOGLOBIN 7.2 g/dL (12.0-16.0)
[2024-10-24] MEDS ORDERED: ATORVASTATIN CALCIUM 20MG TABLET PO SCH (21:00)
[2024-10-24] MEDS ORDERED: IBUPROFEN 400MG TABLET PO PRN (21:11)
[2024-10-24] MEDS: IBUPROFEN 100MG/5ML UDC PO PRN (21:24)
[2024-10-25] VITALS (21 sets, daily range): BP systolic 107–143; BP diastolic 60–88; PULSE 77–87; RESP 9–22; TEMP 36.3918–37.8; O2SAT 90–100
[2024-10-25 02:12] LABS: HEMATOCRIT 19.9 % (36.0-48.0); HEMOGLOBIN 6.6 g/dL (12.0-16.0)
[2024-10-25 08:03] LABS: POTASSIUM 4.1 mEq/L (3.5-5.1)
[2024-10-25 08:04] LABS: CALCIUM 8.3 mg/dL (8.7-10.4)
[2024-10-25 08:09] LABS: CREATININE 3.6 mg/dL (0.6-1.0)
[2024-10-25 08:11] LABS: MEAN CORPUSCULAR HEMOGLOBIN 29.4 pg (28.0-32.0); MEAN CORPUSCULAR VOLUME 89.1 fL (81.0-99.0); MEAN PLATELET VOLUME 9.1 fl (7.4-10.4); PLATELET 163 x1000/uL (130-400); RED BLOOD CELL COUNT 2.28 mill/uL (4.2-5.4); RED CELL DISTRIBUTION WIDTH 14.9 % (11.6-14.6); WHITE BLOOD COUNT 7.4 x1000/uL (4.5-11.0)
[2024-10-25 08:33] LABS: DIFFERENTIAL COMMENT 1
[2024-10-25 08:35] LABS: HEMOGLOBIN. 6.7 g/dL (12.0-16.0)
[2024-10-25 08:36] LABS: HEMATOCRIT. 20.3 % (36.0-48.0)
[2024-10-25 08:56] LABS: BG BASE EXCESS -3.3 mmol/L (-2.0-3.0); BG CARBOXYHEMOGLOBIN 0.5 % (0.5-1.5); BG DEOXYHEMOGLOBIN 1.2 % (0.0-5.0); BG FRACTION INSPIRED OXYGEN 60; BG HCO3 ACT 22.7 mmol/L (21.0-28.0); BG METHEMOGLOBIN 0.3 % (0.5-1.5); BG OXYGEN SATURATION 98.8 % (94.0-98.0); BG PH 7.311 (7.350-7.450); BG PO2 133.8 mmHg (83.0-108.0); BG SAMPLE SITE RIGHT RADIAL; BG TOTAL HEMOGLOBIN 6.7 g/dL (12.0-16.0); BG VENT MODE MASK - BIPAP
[2024-10-25] MEDS: ACETAMINOPHEN 325MG TABLET PO PRN (12:39)
[2024-10-25 14:56] LABS: PLATELET ESTIMATE NORMAL
[2024-10-25 14:57] LABS: ANISOCYTOSIS 1+; HYPOCHROMASIA 1+
[2024-10-25 16:09] LABS: HEMATOCRIT. 23.1 % (36.0-48.0); HEMOGLOBIN. 7.7 g/dL (12.0-16.0); MEAN CORPUSCULAR HEMOGLOBIN 29.8 pg (28.0-32.0); MEAN CORPUSCULAR HGB CONC 33.4 g/dL (31.0-37.0); MEAN CORPUSCULAR VOLUME 89.3 fL (81.0-99.0); MEAN PLATELET VOLUME 8.7 fl (7.4-10.4); PLATELET 166 x1000/uL (130-400); RED BLOOD CELL COUNT 2.58 mill/uL (4.2-5.4); WHITE BLOOD COUNT 6.4 x1000/uL (4.5-11.0)
[2024-10-25 16:14] LABS: DIFFERENTIAL COMMENT 1
[2024-10-25 16:20] LABS: INR 1.1; PROTHROMBIN TIME 11.6 sec (9.6-11.0)
[2024-10-25 16:25] LABS: FIBRINOGEN > 850 mg/dL (200-400)
[2024-10-25 16:26] LABS: PLATELET ESTIMATE NORMAL
[2024-10-26] VITALS (24 sets, daily range): BP systolic 130–173; BP diastolic 71–102; PULSE 85–100; RESP 13–28; TEMP 36.28068–38.4; O2SAT 90–100
[2024-10-26] MEDS: ASCORBIC ACID 250 MG TABLET PO SCH (12:17)
[2024-10-26] MEDS: FUROSEMIDE 40MG/4ML VIAL IVP NR (12:18)
[2024-10-26 12:31] LABS: POTASSIUM 3.3 mEq/L (3.5-5.1)
[2024-10-26 12:32] LABS: CALCIUM 9.2 mg/dL (8.7-10.4)
[2024-10-26 13:32] LABS: BG BASE EXCESS -3.4 mmol/L (-2.0-3.0); BG CARBOXYHEMOGLOBIN 0.3 % (0.5-1.5); BG DEOXYHEMOGLOBIN 0.9 % (0.0-5.0); BG FRACTION INSPIRED OXYGEN 100; BG METHEMOGLOBIN 0.3 % (0.5-1.5); BG OXYGEN SATURATION 99.1 % (94.0-98.0); BG OXYHEMOGLOBIN 98.5 % (94.0-98.0); BG PCO2 35.2 mmHg (32.0-45.0); BG PH 7.394 (7.350-7.450); BG PO2 138.4 mmHg (83.0-108.0); BG SAMPLE SITE RIGHT RADIAL; BG TOTAL HEMOGLOBIN 9.3 g/dL (12.0-16.0); BG VENT MODE MASK - NRB
[2024-10-26 16:05] LABS: CREATININE 2.9 mg/dL (0.6-1.0)
[2024-10-27] VITALS (20 sets, daily range): BP systolic 143–171; BP diastolic 69–102; PULSE 86–100; RESP 13–27; TEMP 36.1–38.1; O2SAT 95–100
[2024-10-27] MEDS: CLONIDINE 0.1MG TABLET PO PRN (12:45)
[2024-10-27] MEDS: AMLODIPINE 5MG TABLET PO SCH (12:53)
[2024-10-27 13:53] LABS: BG BASE EXCESS -2.2 mmol/L (-2.0-3.0); BG CARBOXYHEMOGLOBIN 0.7 % (0.5-1.5); BG FRACTION INSPIRED OXYGEN 60; BG HCO3 ACT 22.7 mmol/L (21.0-28.0); BG METHEMOGLOBIN 0.3 % (0.5-1.5); BG PCO2 39.2 mmHg (32.0-45.0); BG PO2 228.8 mmHg (83.0-108.0); BG SAMPLE SITE RIGHT RADIAL; BG TOTAL HEMOGLOBIN 10.3 g/dL (12.0-16.0); BG VENT MODE MASK - BIPAP
[2024-10-27 14:20] LABS: HEMATOCRIT. 25.3 % (36.0-48.0); HEMOGLOBIN. 8.1 g/dL (12.0-16.0); MEAN CORPUSCULAR HEMOGLOBIN 28.7 pg (28.0-32.0); MEAN CORPUSCULAR HGB CONC 32.2 g/dL (31.0-37.0); MEAN CORPUSCULAR VOLUME 89.1 fL (81.0-99.0); MEAN PLATELET VOLUME 8.1 fl (7.4-10.4); PLATELET 162 x1000/uL (130-400); RED BLOOD CELL COUNT 2.83 mill/uL (4.2-5.4); RED CELL DISTRIBUTION WIDTH 14.9 % (11.6-14.6); WHITE BLOOD COUNT 7.4 x1000/uL (4.5-11.0)
[2024-10-27 14:21] LABS: DIFFERENTIAL COMMENT 1
[2024-10-27 14:28] LABS: CARBON DIOXIDE 24 mEq/L (21-32); CHLORIDE 101 mEq/L (98-107); POTASSIUM 3.7 mEq/L (3.5-5.1); SODIUM 136 mEq/L (136-145)
[2024-10-27 14:29] LABS: CALCIUM 8.7 mg/dL (8.7-10.4)
[2024-10-27 14:33] LABS: GLUCOSE 123 mg/dL (70-105)
[2024-10-27 14:34] LABS: UREA NITROGEN BLOOD 39 mg/dL (9-23)
[2024-10-27 14:36] LABS: PHOSPHORUS 3.8 mg/dL (2.5-4.9)
[2024-10-27 14:49] LABS: CREATININE 4.5 mg/dL (0.6-1.0)
[2024-10-27 17:33] LABS: PLATELET ESTIMATE NORMAL
[2024-10-27] MEDS ORDERED: SODIUM CHLORIDE 10% FOR INH 15ML NEB INH NR (23:00)
== END 2024-10-27 20:17 | disposition short-term general hospital (02) | DRG 720 ==
LOC: ER 22:51 → 5EST 10-23 01:53
PROVIDERS: ADMIT Internal Medicine; ATTEND Internal Medicine
PROC: 5A09357 Assistance with Respiratory Ventilation, Less than 24 Consecutive Hours, Continuous Positive Airway Pressure (ICD-10-PCS; 2024-10-22)
PROC: 5A1D70Z Performance of Urinary Filtration, Intermittent, Less than 6 Hours Per Day (ICD-10-PCS; principal; 2024-10-23)
PROC: 30233N1 Transfusion of Nonautologous Red Blood Cells into Peripheral Vein, Percutaneous Approach (ICD-10-PCS; 2024-10-23)
PROC: 06HY33Z Insertion of Infusion Device into Lower Vein, Percutaneous Approach (ICD-10-PCS; 2024-10-23)
PROC: B54BZZA Ultrasonography of Right Lower Extremity Veins, Guidance (ICD-10-PCS; 2024-10-23)
PROC: 5A09357 Assistance with Respiratory Ventilation, Less than 24 Consecutive Hours, Continuous Positive Airway Pressure (ICD-10-PCS; 2024-10-23)
PROC: 5A0935A Assistance with Respiratory Ventilation, Less than 24 Consecutive Hours, High Flow/Velocity Cannula (ICD-10-PCS; 2024-10-23)
PROC: 5A09457 Assistance with Respiratory Ventilation, 24-96 Consecutive Hours, Continuous Positive Airway Pressure (ICD-10-PCS; 2024-10-23)
PROC: 5A1D70Z Performance of Urinary Filtration, Intermittent, Less than 6 Hours Per Day (ICD-10-PCS; 2024-10-24)
PROC: 5A09357 Assistance with Respiratory Ventilation, Less than 24 Consecutive Hours, Continuous Positive Airway Pressure (ICD-10-PCS; 2024-10-25)
PROC: 5A1D70Z Performance of Urinary Filtration, Intermittent, Less than 6 Hours Per Day (ICD-10-PCS; 2024-10-26)
PROC: 5A09357 Assistance with Respiratory Ventilation, Less than 24 Consecutive Hours, Continuous Positive Airway Pressure (ICD-10-PCS; 2024-10-26)
PROC: 5A1D70Z Performance of Urinary Filtration, Intermittent, Less than 6 Hours Per Day (ICD-10-PCS; 2024-10-27)
DX: A41.9 Sepsis, unspecified organism (principal); J96.01 Acute respiratory failure with hypoxia; I50.33 Acute on chronic diastolic (congestive) heart failure; N17.9 Acute kidney failure, unspecified; D68.9 Coagulation defect, unspecified; E87.20 Acidosis, unspecified; E10.319 Type 1 diabetes mellitus with unspecified diabetic retinopathy without macular edema; D63.8 Anemia in other chronic diseases classified elsewhere; E10.22 Type 1 diabetes mellitus with diabetic chronic kidney disease; N18.5 Chronic kidney disease, stage 5; I13.2 Hypertensive heart and chronic kidney disease with heart failure and with stage 5 chronic kidney disease, or end stage renal disease; E83.39 Other disorders of phosphorus metabolism; K76.1 Chronic passive congestion of liver; D50.9 Iron deficiency anemia, unspecified; E10.65 Type 1 diabetes mellitus with hyperglycemia; E83.42 Hypomagnesemia; H54.8 Legal blindness, as defined in USA; E66.9 Obesity, unspecified; R33.9 Retention of urine, unspecified; F41.9 Anxiety disorder, unspecified; N39.0 Urinary tract infection, site not specified; E78.00 Pure hypercholesterolemia, unspecified; E87.5 Hyperkalemia; F41.0 Panic disorder [episodic paroxysmal anxiety]; Z91.148 Patient's other noncompliance with medication regimen for other reason; Z79.01 Long term (current) use of anticoagulants; Z79.4 Long term (current) use of insulin; Z79.899 Other long term (current) drug therapy; Z86.73 Personal history of transient ischemic attack (TIA), and cerebral infarction without residual deficits; Z88.5 Allergy status to narcotic agent; Z88.6 Allergy status to analgesic agent; Z99.2 Dependence on renal dialysis; Z88.8 Allergy status to other drugs, medicaments and biological substances; Z68.1 Body mass index [BMI] 19.9 or less, adult
CPT/HCPCS: 36415; 36556; 36600; 71045; 74018; 76770; 76937; 80048; 80061; 80076; 80202; 80305; 81003; 82375; 82550; 82607; 82728; 82746; 82805; 82962; 83036; 83540; 83550; 83605; 83735; 83880; 84100; 84145; 84443; 84484; 85014; 85018; 85025; 85044; 85379; 85384; 86705; 86706; 86709; 86850; 86900; 86920; 87340; 90935; 93005; 93306; 93971; 94070; 94660; 94664; 99291; A4606; C1752; J1940; J2003; J2270; J2405; J2470; J2543; J3370; J3475; J3490; J7131; P9016

== ENCOUNTER 2025-02-06 18:03 | Inpatient (IN) | payer MEDICAID ==
[~2025-02-06] VITALS: Ht 170.2 cm; Wt 78.9 kg
[2025-02-06] MEDS: IPRATROPIUM/ALBUTEROL 0.5-3(2.5)MG/3ML NEB HHN SCH (01:23)
[~2025-02-06 18:03] MED LIST changes: +AMLO10TA80 PO; +APIX5TAB PO; +ATOR20TA65 PO; +CARV12.545 PO; +FURO20TA4 PO; +GABA-529 PO; +METO2.5T2 PO; +SEVELAMER; +SODI650T PO
[2025-02-06 18:46] LABS: BASOPHILS % 1.0 % (0.0-2.0); EOSINOPHILS % 0.4 % (0.0-5.0); HEMATOCRIT. 36.4 % (36.0-48.0); HEMOGLOBIN. 12.7 g/dL (12.0-16.0); LYMPHOCYTES % 24.5 % (20.0-50.0); MEAN PLATELET VOLUME 7.8 fl (7.4-10.4); MONOCYTES % 6.8 % (2.0-8.0); NEUTROPHILS % 67.3 % (40.0-76.0); PLATELET 260 x1000/uL (130-400); RED BLOOD CELL COUNT 4.32 mill/uL (4.2-5.4); RED CELL DISTRIBUTION WIDTH 14.3 % (11.6-14.6)
[2025-02-06 18:58] LABS: UREA NITROGEN BLOOD 26 mg/dL (9-23)
[2025-02-06 18:59] LABS: CREATININE 3.1 mg/dL (0.6-1.0); ETHANOL BLOOD < 10 mg/dL (<10)
[2025-02-06 19:00] LABS: ASPARTATE AMINOTRANSFERASE 14 IU/L (<34); BILIRUBIN DIRECT 0.2 mg/dL (<=3.0)
[2025-02-06 19:01] LABS: BILIRUBIN TOTAL 1.0 mg/dL (0.1-1.0); PROTEIN TOTAL 8.1 g/dL (6.0-8.3)
[2025-02-06] MEDS: MORPHINE SULFATE 4 MG/ML INJ (FOR IV/IM USE) IV ONE (19:28)
[2025-02-06] MEDS: ONDANSETRON HCL 4MG/2ML INJ IV ONE (19:28)
[2025-02-06] MEDS: FAMOTIDINE 20MG/2ML VIAL IV ONE (19:28)
[2025-02-06 20:40] LABS: HCG SCREEN NEGATIVE
[2025-02-06 23:00] VITALS: BP 158/92; PULSE 83; RESP 18; TEMP 36.4736
[2025-02-06] MEDS ORDERED: CLONIDINE 0.1MG TABLET PO PRN (23:00)
[2025-02-06] MEDS ORDERED: ONDANSETRON HCL 4MG/2ML INJ IV PRN (23:00)
[2025-02-06] MEDS ORDERED: DOCUSATE SODIUM 100MG CAPSULE PO PRN (23:00)
[2025-02-06] MEDS ORDERED: DEXTROSE 50% WATER 50ML SYRINGE IV PRN (23:30)
[2025-02-07] VITALS (9 sets, daily range): BP systolic 131–166; BP diastolic 77–96; PULSE 68–90; RESP 16–22; TEMP 36.4–37; O2SAT 97–100
[2025-02-07] MEDS ORDERED: MORPHINE SULFATE 2 MG/ML INJ (NOT FOR IM USE) IV NR (01:15)
[2025-02-07] MEDS: INSULIN LISPRO 100 UNITS/ML SUBCUT SCH (06:27)
[2025-02-07] MEDS: BLOOD SUGAR DIAGNOSTIC STRIP TEST SCH (06:27)
[2025-02-07] MEDS: PANTOPRAZOLE SODIUM 40 MG/VIAL IV SCH (09:10)
[2025-02-07] MEDS: FUROSEMIDE 20MG TABLET PO SCH (09:12)
[2025-02-07] MEDS: GABAPENTIN 100MG CAPSULE PO SCH (09:13)
[2025-02-07] MEDS: AMLODIPINE 10MG TABLET PO SCH (09:13)
[2025-02-07] MEDS: CARVEDILOL 12.5MG TABLET PO SCH (09:13)
[2025-02-07] MEDS: ENOXAPARIN 30MG/0.3ML SYR SUBCUT SCH (09:19)
[2025-02-07] MEDS ORDERED: ACETAMINOPHEN 325MG TABLET PO PRN (11:15)
[2025-02-07] MEDS: ACETAMINOPHEN 325MG TABLET PO PRN (12:11)
[2025-02-07] MEDS ORDERED: NALOXONE HCL 0.4MG/ML VIAL IV PRN (12:45)
[2025-02-07 13:10] LABS: TRIGLYCERIDE 298.0 mg/dL (0-150)
[2025-02-07 13:11] LABS: LDL CHOLESTEROL 125.0 mg/dL (5-100)
[2025-02-07] MEDS: TRAMADOL 50MG TABLET PO PRN (13:11)
[2025-02-07 13:14] LABS: T4 FREE 1.18 ng/dL (0.89-1.76)
[2025-02-07 19:16] LABS: CLARITY URINE CLOUDY (CLEAR); COLOR URINE YELLOW (YELLOW); GLUCOSE URINE 2+ (NEGATIVE); KETONES URINE TRACE (NEGATIVE); LEUKOCYTE ESTERASE URINE NEGATIVE (NEGATIVE); NITRITE URINE NEGATIVE (NEGATIVE); OCCULT BLOOD URINE TRACE (NEGATIVE); PH URINE 7.0 (4.5-8.0); PROTEIN URINE 4+ (NEGATIVE); SPECIFIC GRAVITY URINE 1.020 (1.005-1.030); UROBILINOGEN URINE 0.2 E.U./dL (0.2-1.0)
[2025-02-07 19:35] LABS: SODIUM URINE RANDOM 48 mEq/L
[2025-02-07 19:36] LABS: BACTERIA URINE 1+; RBC URINE 0-2 /hpf (0-2); SQUAMOUS EPITHELIAL CELL URINE 3+ /lpf (RARE/1+)
[2025-02-07 19:37] LABS: TRICHOMONAS URINE 2+
[2025-02-07 19:41] LABS: HEPATITIS A AB IGM NEGATIVE (Negative); HEPATITIS B CORE AB IGM NEGATIVE (Negative)
[2025-02-07 19:41] LABS: *AMPHETAMINES SCREEN URINE NEGATIVE (NEGATIVE); *BENZODIAZEPINES SCREEN URINE NEGATIVE (NEGATIVE)
[2025-02-07 19:42] LABS: *BARBITURATES SCREEN URINE NEGATIVE (NEGATIVE); *COCAINE SCREEN URINE NEGATIVE (NEGATIVE); CANNABINOID URINE SCREEN NEGATIVE (NEGATIVE); CREATININE URINE RANDOM 159.6 mg/dL; ECSTASY MDMA SCREEN URINE NEGATIVE (NEGATIVE); METHADONE URINE SCREEN NEGATIVE (NEGATIVE); OPIATES URINE SCREEN PRESUMPTIVE POSITIVE (NEGATIVE); OSMOLALITY URINE 362 mOsm/kg (500-850); PHENCYCLIDINE URINE SCREEN NEGATIVE (NEGATIVE)
[2025-02-07 19:42] LABS: HEPATITIS C AB NON REACTIVE (Neg) (Negative)
[2025-02-07 19:43] LABS: UREA NITROGEN URINE RANDOM 403 mg/dL
[2025-02-07] MEDS: ATORVASTATIN CALCIUM 20MG TABLET PO SCH (21:50)
[2025-02-08] VITALS (16 sets, daily range): BP systolic 86–170; BP diastolic 53–98; PULSE 70–88; RESP 16–20; TEMP 36.114–36.9; O2SAT 96–100
[2025-02-08 06:00] LABS: PLATELET 224 x1000/uL (130-400); RED BLOOD CELL COUNT 4.13 mill/uL (4.2-5.4); RED CELL DISTRIBUTION WIDTH 13.8 % (11.6-14.6)
[2025-02-08 06:15] LABS: UREA NITROGEN BLOOD 40 mg/dL (9-23)
[2025-02-08 06:17] LABS: PHOSPHORUS 5.1 mg/dL (2.5-4.9)
[2025-02-08 06:38] LABS: CREATININE 4.4 mg/dL (0.6-1.0)
[2025-02-08] MEDS: DOCUSATE SODIUM 100MG CAPSULE PO SCH (08:46)
[2025-02-08] MEDS: SEVELAMER CARBONATE 800 MG TABLET PO SCH (12:19)
== END 2025-02-08 17:38 | disposition home or self-care (01) | DRG 253 ==
LOC: ER 18:03 → 8WST 21:22 → EDBEDREQTM 21:28 → EDBEDREQ 21:28 → EDBEDREQSVC 21:28 → ENRESERV 21:44
PROVIDERS: ADMIT Internal Medicine; ATTEND Internal Medicine
PROC: 5A1D70Z Performance of Urinary Filtration, Intermittent, Less than 6 Hours Per Day (ICD-10-PCS; principal; 2025-02-08)
DX: K66.1 Hemoperitoneum (principal); E10.40 Type 1 diabetes mellitus with diabetic neuropathy, unspecified; I13.2 Hypertensive heart and chronic kidney disease with heart failure and with stage 5 chronic kidney disease, or end stage renal disease; E10.319 Type 1 diabetes mellitus with unspecified diabetic retinopathy without macular edema; E83.39 Other disorders of phosphorus metabolism; D63.8 Anemia in other chronic diseases classified elsewhere; N18.6 End stage renal disease; N80.122 Deep endometriosis of left ovary; E10.22 Type 1 diabetes mellitus with diabetic chronic kidney disease; N83.202 Unspecified ovarian cyst, left side; K80.20 Calculus of gallbladder without cholecystitis without obstruction; K76.0 Fatty (change of) liver, not elsewhere classified; E10.65 Type 1 diabetes mellitus with hyperglycemia; E78.00 Pure hypercholesterolemia, unspecified; R93.89 Abnormal findings on diagnostic imaging of other specified body structures; R33.9 Retention of urine, unspecified; H54.61 Unqualified visual loss, right eye, normal vision left eye; F41.0 Panic disorder [episodic paroxysmal anxiety]; I50.9 Heart failure, unspecified; Z99.2 Dependence on renal dialysis; Z86.73 Personal history of transient ischemic attack (TIA), and cerebral infarction without residual deficits; Z87.440 Personal history of urinary (tract) infections; Z88.5 Allergy status to narcotic agent; Z88.6 Allergy status to analgesic agent; Z79.899 Other long term (current) drug therapy
CPT/HCPCS: 36415; 74176; 76830; 76856; 80048; 80061; 80076; 80305; 80320; 81003; 82570; 82962; 83036; 83735; 83880; 83930; 83935; 84100; 84300; 84439; 84443; 84540; 84703; 85025; 85027; 86304; 86705; 86709; 87340; 90935; 94070; 94640; 94664; 94760; 96374; 96375; 99285; J1308; J1650; J1815; J2270; J2405; J2470; G0480